=== PATIENT | male | born 1980 | race Caucasian/White ===

== ENCOUNTER 2016-09-16 16:24 | Emergency (ER) | payer OTHER ==
[~2016-09-16] VITALS: Ht 170.2 cm; Wt 65.9 kg
[~2016-09-16 16:24] MED LIST: FLEXERIL10 MG PO; MOBIC7.5 MG PO; PERCOCET 5/31 TABLET PO; VIBRAMYCIN100 MG PO
[2016-09-16 18:51] LABS: ADD MIUA? YES; BILIRUBIN NEGATIVE; BLOOD NEGATIVE; COLOR YELLOW ((YELLOW)); GLUCOSE (STRIP) NEGATIVE; KETONES 5; LEUKOCYTES NEGATIVE; NITRITE NEGATIVE; PROTEIN (STRIP) NEGATIVE; SPECIFIC GRAVITY 1.021 (1.000-1.030); UROBILINOGEN 0.2 MG/DL (0.2-1.0)
[2016-09-16 18:59] LABS: BACTERIA NONE SEEN /HPF; CRYSTALS PRESENT; EPITHELIAL CELLS RARE /HPF; MUCUS 1+ /LPF; RED BLOOD CELLS 0-5 /HPF (0-5); WHITE BLOOD CELLS 0-5 /HPF (0-5)
[2016-09-16 19:00] LABS: AMORPHOUS URATES CRYSTALS FEW
[2016-09-16] MEDS ORDERED: MOTRIN800 MG PO (19:49)
[2016-09-16] MEDS ORDERED: FIORICET 50-301 EACH PO (19:49)
[2016-09-16] MEDS ORDERED: REGLAN10 MG PO (19:50)
[2016-09-16] MEDS ORDERED: IMITREX100 MG PO (19:50)
[2016-09-16 20:30] VITALS: BP 100/56
== END 2016-09-16 20:59 | disposition home or self-care (01) ==
LOC: EME 16:24
PROVIDERS: Physician Assistant
DX: R51 Headache (principal)
CPT/HCPCS: 70450; 81003; 99281; 99284; J1200; J1885; J2765; J2930; J7030

== ENCOUNTER 2016-10-29 10:48 | Emergency (ER) | payer OTHER ==
[~2016-10-29] VITALS: Ht 170.2 cm; Wt 62.5 kg
[~2016-10-29 10:48] MED LIST changes: +FIORICET 50-301 EACH PO; +IMITREX100 MG PO; +MOTRIN800 MG PO; +REGLAN10 MG PO
[2016-10-29 11:27] LABS: HEMATOCRIT 48.5 % (38.0-50.0); MCH 30.4 PG (29.0-34.0); MCHC 33.6 G/DL (30.0-36.0); MCV 90.5 FL (86-99); MEAN PLAT.VOLUME 10.1 uM^3 (9.0-12.4); PLATELET COUNT 215 K/uL (156-360); RBC DIS.WIDTH-CV 12.9 % (11.8-14.6); RBC DIS.WIDTH-SD 42.5 % (39-53); RED BLOOD COUNT 5.36 M/uL (4.00-5.50); WHITE BLOOD COUNT 7.9 K/uL (4.1-10.2)
[2016-10-29 11:36] LABS: CHLORIDE 101 mEq/L (99-109); POTASSIUM 4.4 mEq/L (3.7-5.4); SODIUM 139 mEq/L (136-147)
[2016-10-29 11:37] LABS: GLUCOSE 173 mg/dL (70-99)
[2016-10-29 11:39] LABS: ANION GAP 15 MEQ/L (2-14)
[2016-10-29 11:41] LABS: GFR ESTIMATE (CALCULATED) > 59 mL/min/
[2016-10-29 11:42] LABS: UREA NITROGEN (BUN) 25 mg/dL (9-23)
[2016-10-29] MEDS ORDERED: AMITRIPTYLINE H10 MG PO (12:57)
[2016-10-29] MEDS ORDERED: ZOFRAN ODT8 MG PO (15:29)
[2016-10-29 15:46] VITALS: BP 105/76
== END 2016-10-29 15:47 | disposition home or self-care (01) ==
LOC: EME 10:48
DX: R11.2 Nausea with vomiting, unspecified (principal)
CPT/HCPCS: 80048; 81003; 85027; 99281; 99284; J2405; J7030

== ENCOUNTER 2016-11-04 13:46 | Emergency (ER) | payer OTHER ==
[~2016-11-04] VITALS: Ht 170.2 cm; Wt 64.7 kg
[~2016-11-04 13:46] MED LIST changes: +AMITRIPTYLINE H10 MG PO; +ZOFRAN ODT8 MG PO
[2016-11-04 14:00] VITALS: BP 117/63
== END 2016-11-04 15:01 | disposition home or self-care (01) ==
LOC: EME 13:46 → RME 13:46
PROC: 0HQEXZZ Repair Left Lower Arm Skin, External Approach (ICD-10-PCS; principal; 2016-11-04)
PROC: 3E0234Z Introduction of Serum, Toxoid and Vaccine into Muscle, Percutaneous Approach (ICD-10-PCS; principal; 2016-11-04)
DX: S51.812A Laceration without foreign body of left forearm, initial encounter (principal); W26.8XXA Contact with other sharp object(s), not elsewhere classified, initial encounter; Z23 Encounter for immunization
CPT/HCPCS: 99281; 99284